=== PATIENT | male | born 1985 | race Caucasian/White ===

== ENCOUNTER 2024-05-16 10:17 | Emergency (ER) | payer OTHER, SELFPAY ==
--- NOTE | ~2024-05-16 | XR_ITS ---
EXAMINATION: XR ELBOW, RIGHT CLINICAL INFORMATION: Right elbow pain, swelling, and redness following a fall. COMPARISON: None available. TECHNIQUE: AP, lateral, and oblique views of the right elbow. FINDINGS: No acute fracture or dislocation. No joint space narrowing or marginal osteophytes. No osseous erosion. No abnormal soft tissue calcification. No significant joint effusion. Prominent soft tissue swelling dorsal to the olecranon which could represent a soft tissue hematoma versus olecranon bursitis. XR/XR elbow RT min 3V IMPRESSION: Prominent soft tissue swelling dorsal to the olecranon which could represent a soft tissue hematoma versus olecranon bursitis. Electronically signed by: Indra Winters MD 05/16/2024 12:51 PM EDT
--- NOTE | ~2024-05-16 | US_ITS ---
EXAMINATION: Extremity nonvascular CLINICAL INFORMATION: Swelling posterior to the elbow COMPARISON: Plain films same date TECHNIQUE: Targeted sonography FINDINGS: In the area of palpable concern is a mildly complex fluid collection posterior to the right elbow at 26 x 10 x 9 mm, approximately 9 mm from the skin surface. This is likely reflective of an olecranon bursitis. This may may not be infected. US/US extremity nonvascular IMPRESSION: Apparent olecranon bursitis. Electronically signed by: Babak Vázquez MD 05/16/2024 03:32 PM EDT
[2024-05-16 10:18] VITALS: BP 133/88; PULSE 91; RESP 16; TEMP 37.2; O2SAT 97; BMI 23.0
--- NOTE | 2024-05-16 11:49 | ED.EXTPRO ---
HPI - Extremity Problem General Chief complaint: Extremity Injury, Upper Stated complaint: r elbow work inj-swelling Time Seen by Provider: 05/16/24 11:16 Source: patient Mode of arrival: ambulatory Limitations: no limitations History of Present Illness ED Provider: Robin Decker PA-C HPI Narrative: 38 yold male with pmh of left knee BKA due infection presents to the ED for right elbow redness and swelling after fall. Patient states he was working in some [employer] and he fell on his elbow landed on some rubber. Patient was doing demolition work. Patient states they later he noticed a little scab he was peeling and then it turned red and then couple of days later the redness became swollen and warm. Patient states no fever or chills. Patient denies any needle injection into wound. Related Data Previous Rx's ?Medication ?Instructions ?Recorded cephalexin 500 mg capsule 500 mg PO QID 7 days #28 caps 05/16/24 naproxen 500 mg tablet 500 mg PO BID PRN pain 7 days #14 05/16/24 tabs prednisone 20 mg tablet 40 mg (2 x 20 mg) PO DAILY 5 days 05/16/24 #10 tabs Allergies Allergy/AdvReac Type Severity Reaction Status Date / Time fentanyl Allergy Hives Verified 05/16/24 10:23 Penicillins Allergy Hives Verified 05/16/24 10:23 morphine AdvReac Vomiting Verified 05/16/24 10:24 Review of Systems Review of Systems: Right elbow redness and swelling Yes all other systems are reviewed and are negative PMFSH Social History Social History Advance Directives: No Advance Directives Information Provided: No Do you have a plan to hurt others: No Plan Physical Exam Vital Signs: Vital Signs: Last Vital Signs Temp 99.0 F 05/16/24 16:01 Pulse 91 05/16/24 16:01 Resp 16 05/16/24 16:01 BP 133/88 05/16/24 16:01 Pulse Ox 97 05/16/24 16:01 O2 Del Method Room Air 05/16/24 16:01 BMI result Body Mass Index 23.0 Const: General: cooperative, healthy appearing, comfortable, no acute distress, well developed, alert and awake Orientation/consciousness: patient oriented x3 HEENT: Head: Yes normal to inspection, Yes No palpable skull fracture present, Yes normocephalic and Yes atraumatic Eyes: General: appearance normal, both eyes and all related structures Neck: Neck: Yes normal visual inspection, Yes full ROM, Yes no lymphadenopathy, Yes no meningeal signs, Yes trachea midline, Yes supple, No anterior neck swelling and No tender Chest: Chest palpation & inspection: normal inspection of the chest and normal palpation of entire chest wall Resp: Effort & Inspection: normal respiratory effort and able to speak in complete sentences Auscultation: clear to auscultation bilaterally Cardio: Jugular venous distension: no JVD Heart sounds: S1 normal heart sound present GI: Inspection: Yes normal to inspection Palpation (GI): Soft to palpation, not firm, nontender, no guarding and not rigid : General: No CVA tenderness and Yes no CVA tenderness Back/Spine/Pelvis: Back: no CVA tenderness, No CVA tenderness and No back tenderness Skin: General skin exam: no rashes or lesions noted, elasticity normal and turgor normal Neuro: General: patient oriented x3, gait normal, tone normal, moves all extremities, Normal light touch and pain sensation, no meningeal signs, no focal motor deficits, CN's II-XI intact bilaterally and normal sensation to monofilament Extrem: General: Yes normal to inspection, Yes full ROM and Yes capillary refill normal Elbow/forearm/wrist images: 1. Erythematous and warm. Positive for slight swelling. Negative for pus discharge/drainage or foul odor. Negative for stiffness. Negative ecchymosis. Negative crepitus. Patient has complete extension and flexion of elbow. Rest of extremity normal. Motor/neuro/vascular exam intact. Psych: Appearance: grossly normal, well kempt and not disheveled Medications Administered Discontinued Medications Generic Name Dose Route Start Last Admin Trade Name Freq PRN Reason Stop Dose Admin Ibuprofen 800 mg 05/16/24 14:47 05/16/24 15:02 Ibuprofen 800 Mg Tablet PO 05/16/24 14:48 800 mg ONCE ONE Administration Medical Decision Making Medical Decision Making MDM Narrative: 38-year-old male with right elbow redness after fall most likely probably trauma induced cellulitis. Presently not suspect a septic joint. Was sent for elbow x-ray to check for any fracture. Patient's vital signs are stable. 15:40. X-ray and ultrasound confirms olecranon bursitis. We will discharged with steroids and pain medication. Also still give antibiotics for treatment of cellulitis after trauma. Patient explained worrisome signs and informed to return to the ED immediately. Not suspecting septic joint, osteomyelitis, arterial occlusion, compartment syndrome, necrotizing fasciitis, or large DVT. Differential Diagnosis Differential Diagnoses: The differential diagnosis associated with the presentation includes (Cellulitis, or chronic bursitis, fracture, septic joint.) Admission/Observation Consideration of admission/observation: Escalation of care including admission/observation considered Independent Interpretation I performed an independent interpretation of an: Plain X-Ray Radiology Impression Discussion of test interpretation with radiology: I have reviewed the radiologist's reading. Independent Historian Clinical information obtained from an independent historian. History obtained from or confirmed by: Other (patient) External Record Review External record reviewed: Other (prior visitis) Prescription Management I considered prescription management with: Pain Medication and Other (steroids) Discharge Plan Discharge Clinical Impression: Olecranon bursitis, Cellulitis Patient Disposition: Home, Self-Care Instructions: Cellulitis (ED), Elbow Bursitis (ED), Warm Compress or Soak (ED) Additional Instructions: Return to the ED immediately for increased swelling, inability to flex and extend elbow, red streaks, whole extremity swelling, bluish/black discoloration, chest pain, shortness of breath, fever, chills, or any other concerning symptoms. You can buy [id number] elbow sleeve with cushion to help with bursitis. FINDINGS: In the area of palpable concern is a mildly complex fluid collection posterior to the right elbow at 26 x 10 x 9 mm, approximately 9 mm from the skin surface. This is likely reflective of an olecranon bursitis. This may may not be infected. US/US extremity nonvascular IMPRESSION: Apparent olecranon bursitis. Electronically signed by: Babak Vázquez MD 05/16/2024 03:32 PM EDT FINDINGS: No acute fracture or dislocation. No joint space narrowing or marginal osteophytes. No osseous erosion. No abnormal soft tissue calcification. No significant joint effusion. Prominent soft tissue swelling dorsal to the olecranon which could represent a soft tissue hematoma versus olecranon bursitis. XR/XR elbow RT min 3V IMPRESSION: Prominent soft tissue swelling dorsal to the olecranon which could represent a soft tissue hematoma versus olecranon bursitis. Electronically signed by: Indra Winters MD 05/16/2024 12:51 PM EDT RP Prescriptions: New prednisone 20 mg tablet 40 mg PO DAILY 5 Days Qty: 10 0RF naproxen 500 mg tablet 500 mg PO BID PRN (Reason: pain) 7 Days Qty: 14 0RF cephalexin 500 mg capsule 500 mg PO QID 7 Days Qty: 28 0RF Referrals: [facility] [place] [facility] [Provider Group] (Left elbow olecranon bursitis vs mild cellulitis) Stand Alone Forms: Work/School Release Interventions: ED Discharge Assessment Last Done: 05/16/24 16:01 Discharge Date/Time: 05/16/24 16:02 Print Language: Citizen Of [place]
[2024-05-16] MEDS: Ibuprofen 800 MG TABLET PO (15:02)
[2024-05-16 16:01] VITALS: BP 133/88; PULSE 91; RESP 16; TEMP 37.2; O2SAT 97
== END 2024-05-16 16:02 | disposition home or self-care (01) ==
PROVIDERS: Emergency Provider Student in an Organized Health Care Education/Training Program
DX: M70.21 Olecranon bursitis, right elbow (principal); Y93.89 Activity, other specified; L03.113 Cellulitis of right upper limb; M25.521 Pain in right elbow
CPT/HCPCS: 73080; 76882; 99283; 99284